=== PATIENT | female | born 1995 | race African-American/Black ===

== ENCOUNTER 2017-03-16 13:52 | Emergency (ER) | payer SELFPAY | END 2017-03-16 14:48 | disposition home or self-care (01) | LOC: SCSER 13:52 | DX: B34.9 Viral infection, unspecified (principal); F17.210 Nicotine dependence, cigarettes, uncomplicated | CPT/HCPCS: 87081; 87430; 99283 ==

== ENCOUNTER 2017-11-09 11:52 | Emergency (ER) | payer SELFPAY ==
[2017-11-09] MEDS ORDERED: Ketorolac Tromethamine 30 MG/ML VIAL ONE (12:08)
== END 2017-11-09 12:31 | disposition home or self-care (01) ==
LOC: SCSER 11:52
DX: M79.671 Pain in right foot (principal); M79.672 Pain in left foot; F17.210 Nicotine dependence, cigarettes, uncomplicated
CPT/HCPCS: 96372; J1885